=== PATIENT | female | born 1980 | race Caucasian/White ===

== ENCOUNTER → 2016-08-29 | Outpatient (CLI) | payer OTHER | LOC: FIMAGING 06:46 | PROVIDERS: ATTEND Family Medicine | DX: M50.91 Cervical disc disorder, unspecified, high cervical region (principal); M50.922 Unspecified cervical disc disorder at C5-C6 level; V89.2XXS Person injured in unspecified motor-vehicle accident, traffic, sequela ==

== ENCOUNTER → 2016-12-30 | Outpatient (CLI) | payer MEDICAID, OTHER ==
[~2016-12-30] MED LIST: GADOBUTROL 10 ML VIAL IVP ONE
== END ==
LOC: FIMAGING 12:44
PROVIDERS: ATTEND Midwife
DX: N94.89 Other specified conditions associated with female genital organs and menstrual cycle (principal)
CPT/HCPCS: A9585

== ENCOUNTER → 2017-04-26 | Outpatient (CLI) | payer OTHER | LOC: FIMAGING 10:33 | PROVIDERS: ATTEND Internal Medicine Endocrinology, Diabetes & Metabolism | DX: N63.10 Unspecified lump in the right breast, unspecified quadrant (principal); E04.9 Nontoxic goiter, unspecified ==

== ENCOUNTER → 2018-01-24 | Day surgery (SDC) | payer OTHER ==
[~2018-01-24] MED LIST changes: +BUPIVACAINE 0.25% 30 ML SDV ONE; +DEXAMETHASONE 4 MG/ML VIAL ONE; +DIAZEPAM 5 MG/ML 1 ML SYR IVP PRN; +EPINEPHrine 1 MG/ML INJ ONE; -GADOBUTROL 10 ML VIAL IVP ONE; +HYDROCODONE/APAP 5/325 TAB PO PRN; +HYDROmorphONE/DILAUDID 1 MG/ML INJ ONE; +HYDROmorphONE/DILAUDID 2 MG/ML INJ ONE; +LIDOCAINE 2% 100 MG/5 ML SYR ONE; +LR 1,000 ML IV ONE; +LR 500 ML IV PRN; +MEPERIDINE 25 MG/0.5 ML AMP IVP PRN; +MEPERIDINE 25 MG/0.5 ML AMP ONE; +MIDAZOLAM 2 MG/2 ML VIAL IVP ONE; +MIDAZOLAM 2 MG/2 ML VIAL ONE; +NALOXONE HCL 0.4 MG/ML INJ IVP PRN; +ONDANSETRON 4 MG/2 ML VIAL ONE; +PROMETHAZINE HCL 25 MG/ML INJ IVP PRN; +PROPOFOL 200 MG/20 ML VIAL ONE; +RANITIDINE 50 MG/2 ML VIAL ONE; +ROCURONIUM 100 MG/10 ML VIAL ONE; +SILVER NITRATE APPLICATOR 1 APPL TP ONE; +SUGAMMADEX SODIUM 200 MG/2 ML VIAL IVP ONE; +fentaNYL 100 MCG/2 ML INJ ONE; +fentaNYL 250 MCG/5 ML INJ ONE
--- NOTE | 2018-01-24 08:19 | PDGENHP ---
History & Physical Chief Complaint: Abnormal pelvic US, Adnexal mass History of Present Illness: Jessica is a 37 yo who I met with in the office to discuss a couple items that have come up with her ANTHONY provider as she prepares to be a gestational carrier. First was that they identified a possible polyp on her sonohystogram and recommended hysteroscopy and removal if neccessary. She also has a 5cm dermoid that she has known about to some degree for years. Assymptomatic. Discussed RBA to removal with her and her ANTHONY - with regard to risks of torsion, etc, during surrogate ... and we decided that laparoscopic removal best option. Pertinent Past, Social, Family History: H/o LS gastric bypass surgery in the past, otherwise non-contributory. She does note that she has really struggled with intermittent symptomatic reactive hypoglycemia since her weight-loss surgery Relevant Physical Exam: NAD, RRR, LCTAB, Belly soft Assessment & Plan Assessment: Preop: HSC with possible polypectomy, DxLS with removal of likely dermoid - No abx indicated/required. - Likely home later today from PACU. - Routine preop orders. - Consents signed in chart. [place]
--- NOTE | 2018-01-24 08:46 | PDANEPAE ---
ANE History of Present Illness oviarian cysts and endometrial polyps, here for laparoscopic removal of cysts and polyps ANE Past Medical History - Cardiovascular History Hx Hypertension: No Hx Arrhythmias: No Hx Chest Pain: No Hx Coronary Artery / Peripheral Vascular Disease: No Hx CHF / Valvular Disease: No Hx Palpitations: No - Pulmonary History Hx COPD: No Hx Asthma/Reactive Airway Disease: No Hx Recent Upper Respiratory Infection: No Hx Oxygen in Use at Home: No Hx Sleep Apnea: No Sleep Apnea Screening Result - Last Documented: Negative - Neurologic History Hx Cerebrovascular Accident: No Hx Seizures: No Hx Dementia: No - Endocrine History Hx Diabetes: No Endocrine History Comment: hypoglycemia r/t gastric bypass - Renal History Hx Renal Disorders: No - Liver History Hx Hepatic Disorders: No - Neurological & Psychiatric Hx Hx Neurological and Psychiatric Disorders: No - Cancer History Hx Cancer: No - Congenital Disorder History Hx Congenital Disorders: No - GI History Hx Gastrointestinal Disorders: Yes Gastrointestinal History Comment: 2008-gastric bypass. Gastric ulcers in past- resolved. - Other Health History Other Health History: Uterine polyp-surg 10/19/14. - Chronic Pain History Chronic Pain: No - Surgical History Prior Surgeries: Right bunionectomy 2016. hysteroscopy 2014. 2013-R carpal tunnel repair. 2007-gastric bypass with 150 lb. wt. loss. ANE Review of Systems Review of Systems: - Exercise capacity METS (RN): 4 METS ANE Patient History - Allergies Allergies/Adverse Reactions: erythromycin base Allergy (Verified 01/02/15 12:54) Other-Enter Comments - Home Medications Home Medications: Acetaminophen [Tylenol 325mg (*)] 325 mg PO Q6HRS PRN 12/27/17 [Last Taken 3 Weeks Ago ~01/03/18] Calcium Carbonate [Oyster Shell Calcium 500 mg (*)] 500 mg PO DAILY 12/27/17 [ Last Taken 01/18/18] Cholecalciferol Vit D3 [Vitamin D3 (*)] 1,000 units PO DAILY 12/27/17 [Last Taken 01/18/18] Desogestrel-Ethinyl Estradiol [Isibloom 28 Day Tablet] 1 each PO HS 12/27/17 [ Last Taken 01/23/18] Multivitamins [Multivitamin (*)] 1 each PO DAILY 12/27/17 [Last Taken 01/18/18] - NPO status NPO Since - Liquids (Date): 01/23/18 NPO Since - Liquids (Time): 21:00 NPO Since - Solids (Date): 01/23/18 NPO Since - Solids (Time): 20:00 - Smoking Hx Smoking Status: Never smoked - Family Anes Hx Family Hx Anesthesia Complications: none ANE Labs/Vital Signs - Vital Signs Blood Pressure: 103/65 Heart Rate: 84 Respiratory Rate: 18 O2 Sat (%): 97 Height: 177.8 cm Weight: 83.915 kg ANE Physical Exam - Airway Neck exam: FROM Mallampati Score: Class 1 Mouth exam: normal dental/mouth exam - Pulmonary Pulmonary: no respiratory distress - Cardiovascular Cardiovascular: regular rate and rhythym - ASA Status ASA Status: II ANE Anesthesia Plan Anesthesia Plan: general endotracheal anesthesia
--- NOTE | 2018-01-24 10:52 | POSTANESTH ---
Post Anesthetic Evaluation Cardiovascular Status: Normal, Stable Respiratory Status: Normal, Stable Level of Consciousness/Mental Status: Can Participate in Eval Pain Control: Adequate, Prn Tx Ordered Nausea/Vomiting Control: Adequate, Prn Tx Ordered Complications Possibly Related to Anesthesia: None Noted (Feeling chilled and shvering despite nml temp. Improved with low heat bear hugger and deerol per PACU orders. Doing well otherwise)
--- NOTE | 2018-01-24 10:55 | SUROPNOTE ---
[facility] Operative Report - Surgery Date of Operation: 01/24/18 Surgeon: Jhoan Johnson Denture Processor: Samina Mccabe Anesthesiologist: Naheed Quintanilla Anesthesia: GET(General Endotracheal) Pre-op Diagnosis: Abnormal pelvic US, left adnexal mass Post-op Diagnosis: Endometrial polyp, Left dermoid cyst, Left simple cyst Procedure: Diagnostic hysteroscopy, endo polypectomy, DxLS, left ovarian cystectomy Findings: 2cm broad based polyp at fundus, 5cm left dermoid Inf/Abcess present in the surg proc area at time of surgery?: No EBL: Minimal (10cc) Complications: None Specimen(s): Endometrial polyp, Left ovarian cyst and contents Technique: The patient was taken to the operating room where her identity and planned procedure were confirmed during timeout. The patient was placed under general anesthesia without issue. When anesthesia was found to be adequate, the patient was prepped and draped in the normal sterile fashion in dorsal lithotomy position in Russell stirrups. No antibiotics were indicated nor given. Phillip catheter was placed. We performed diagnostic hysteroscopy and polypectomy first. Cheney speculum placed in the vagina and anterior lip of the cervix grasped with single-tooth tenaculum. A paracervical block was placed with 5cc of local anesthetic with epi at 4:00 and 8:00 locations at the cervico-vaginal junction - 10cc total. The cervix was carefully serially dilated first to allow uterine sound measurement, then to 6mm to allow TruClear hysteroscope. Dilation proceeded easily with no concerns for injury to the uterus. Scope inserted and findings noted as above. The TruClear device was used to remove any polypoid lesions and sample other surrounding endometrium. The scope was removed and acorn uterine manipulator placed to aid with laparoscopy. A 5mm vertical incision was made in the base of the umbilicus after injection of local anesthetic. The anterior abdominal wall was lifted as the Veress needle was carefully inserted into the abdomen at a 45% angle from vertical. Intraabdominal placement was confirmed with hanging drop test and low initial insufflation pressures. Once the abdomen was adequately insufflated with CO2 gas the Veress was removed and a 5mm Optiview non-bladed trocar was introduced into the abdomen without complication under direct visualization with the camera within the trocar. Once inside a brief scan of the abdomen revealed no injuries upon entry. At this point 2 additional 5mm ports were placed in the bilateral lower quadrants after injection of local. Additional pictures were taken of intra-abdominal organs/structures as noted in findings. The left ovary and associated dermoid cyst was clearly visible. The ovary was elevated and stabilized while we attempted to shell out the dermoid. The cyst did inadvertently rupture during this process spilling minimal sebaceous fluid into the pelvis. We aggressively irrigated and suctioned this immediately and the rest of the cyst contents was quite contained while we complete dissection of the lesion free from surrounding ovary. At this point we up-sized the umbilical trocar to 10mm and an endocatch bag was introduced, the cyst placed within, and removed without issue via the umbilical port. The left ovary was inspected after this cystectomy and small areas of bleeding were addressed with monopolar cautery - achieving excellent hemostasis. To conclude the pelvis was again copiously irrigated and complete hemostasis was noted, even with lowered intra-abdominal pressure. The fascial incision of the 10mm umbilical port was closed with 0-vicryl laparoscopically. All trocars were removed, gas was allowed to escape the abdomen, and skin incisions closed with single subcuticular stitches of 4-0 monocryl and then covered with Dermabond. The pt was extubated uneventfully and taken to the PACU in stable condition. Lap, needle and instrument counts were announced as correct at the conclusion of the case. I was scrubbed and present for the entire procedure.
[2018-01-24] MEDS: fentaNYL 100 MCG/2 ML INJ IVP PRN ×2 (10:59→11:08)
[2018-01-24] MEDS: HYDROmorphONE/DILAUDID 2 MG/ML INJ IVP PRN ×2 (11:24→11:34)
[2018-01-24 13:02] VITALS: BP 106/64
== END | disposition home or self-care (01) ==
LOC: FSGY 06:40 → F3E 06:40 → UNDOADMOB 06:40 → EDSTATUS 08:30 → UNDODISOB 14:00
PROVIDERS: ATTEND Obstetrics & Gynecology
PROC: 0UB98ZX Excision of Uterus, Via Natural or Artificial Opening Endoscopic, Diagnostic (ICD-10-PCS; principal; 2018-01-24 08:30)
DX: N84.0 Polyp of corpus uteri (principal); D27.1 Benign neoplasm of left ovary; K91.2 Postsurgical malabsorption, not elsewhere classified; Z90.3 Acquired absence of stomach [part of]
CPT/HCPCS: 58558; C1782; J0171; J1100; J1170; J2001; J2175; J2250; J2405; J2704; J2780; J3010

== ENCOUNTER → 2018-06-12 | Outpatient (CLI) | payer OTHER | LOC: FIMAGING 07:21 | PROVIDERS: ATTEND Advanced Practice Midwife | DX: O09.521 Supervision of elderly multigravida, first trimester (principal); Z3A.13 13 weeks gestation of pregnancy ==

== ENCOUNTER → 2018-07-29 | Outpatient (CLI) | payer OTHER | LOC: FIMAGING 13:16 | PROVIDERS: ATTEND Advanced Practice Midwife | DX: O09.522 Supervision of elderly multigravida, second trimester (principal); O09.812 Supervision of pregnancy resulting from assisted reproductive technology, second trimester; Z3A.19 19 weeks gestation of pregnancy ==

== ENCOUNTER → 2018-08-14 | Outpatient (CLI) | payer OTHER | LOC: FIMAGING 11:06 | PROVIDERS: ATTEND Advanced Practice Midwife | DX: O09.522 Supervision of elderly multigravida, second trimester (principal); O09.812 Supervision of pregnancy resulting from assisted reproductive technology, second trimester; Z3A.22 22 weeks gestation of pregnancy ==

== ENCOUNTER → 2018-08-26 | Outpatient (CLI) | payer OTHER | LOC: FIMAGING 14:25 | PROVIDERS: ATTEND Advanced Practice Midwife | DX: O09.522 Supervision of elderly multigravida, second trimester (principal); O09.812 Supervision of pregnancy resulting from assisted reproductive technology, second trimester; O35.8XX0 Maternal care for other (suspected) fetal abnormality and damage, not applicable or unspecified; Z3A.23 23 weeks gestation of pregnancy ==

== ENCOUNTER → 2018-09-25 | Outpatient (CLI) | payer OTHER | LOC: FIMAGING 08:30 ==